=== PATIENT | female | born 1985 | race African-American/Black ===

== ENCOUNTER 2016-11-26 09:42 | Emergency (ER) | payer SELFPAY ==
[~2016-11-26] VITALS: Ht 162.6 cm; Wt 55.0 kg
[~2016-11-26 09:42] MED LIST: ARIP20 PO; AZIT250T43 PO; SERO300T PO; SILV1CRE59 TOP; TRAZ100 PO
[2016-11-26 09:44] VITALS: BP 132/68; PULSE 70; RESP 18; TEMP 98.7; O2SAT 97
--- NOTE | 2016-11-26 10:29 | PD ---
HPI . right lower jaw pain for > 2 years Chief Complaint: Oral / Dental Pain or Problem Time Seen by Provider: 10:29 Travel History International Travel<30 days: No Contact w/Intl Traveler<30days: No Traveled to known affect area: No History of Present Illness HPI 31-year-old female here with complaints of right lower jaw pain off and on for over 2 years. Patient states that she has not yet seen a dentist. She is complaining of some tooth pain on the lower jaw on the right side. She tells me that the pain was extreme. She also reports that she had some pain in her right ear and thinks that it may be draining into her mouth. She admits to a full sensation in her throat. She says she felt like her throat was tight. She admits to taking someone else's lortab around 7am. She denies any fever or chills. She has no other complaints. She is not short of breath or having any difficulty breathing or swallowing. She is accompanied by her mom, sister and cousin. PFSH Past Medical History Hx Anticoagulant Therapy: No Bipolar Disorder: Yes Cancer: No Cardiovascular Problems: No Chemotherapy: No Cerebrovascular Accident: No Diabetes: No Diminished Hearing: No Psychiatric: No Respiratory: No Schizophrenia: Yes Seizures: No Thyroid Disease: No ?: Not LMP: 11/2016 : 0 Para: 0 Past Surgical History Hysterectomy: No Social History Alcohol Use: Yes Tobacco Use: Yes (1 ppd) Substance Use: Yes Allergies-Medications (Allergen,Severity, Reaction): Coded Allergies: No Known Allergies (Verified , 11/26/16) Reported Meds & Prescriptions Reported Meds & Active Scripts Active Ibuprofen 800 Mg Tab 800 Mg PO TID Zithromax Z-Eric (Azithromycin) 250 Mg Dspk 250 Mg PO DIRECTED 500 MG (2 tabs) day 1, then 1 tab days 2-5. Reported Trazodone (Trazodone HCl) 100 Mg Tab 200 Mg PO HS Seroquel XR (Quetiapine Fumarate) 400 Mg Tab 800 Mg PO DAILY Abilify (Aripiprazole) 20 Mg Tab 20 Mg PO DAILY Review of Systems General / Constitutional: No: Fever Eyes: No: Visual changes HENT: Positive: Dental Difficulties, Earache, No: Headaches Cardiovascular: No: Chest Pain or Discomfort Respiratory: No: Shortness of Breath Gastrointestinal: No: Abdominal Pain Genitourinary: No: Dysuria Musculoskeletal: No: Pain Skin: No Rash Neurologic: No: Weakness Psychiatric: No: Depression Endocrine: No: Polydipsia Hematologic/Lymphatic: No: Easy Bruising Physical Exam Narrative GENERAL: AAO x 3, no acute distress, Well-nourished, well-developed patient. SKIN: Warm and dry. No visible rashes or bruising. HEAD: Normocephalic and atraumatic. EYES: No scleral icterus. No injection or drainage. EOM intact, PERRLA ENT: No nasal drainage noted. Mucous membranes pink. Airway patent. #32 slightly impacted. Posterior pharynx clear without any edema, erythema or exudates. Ears bilaterally with fluid. Some frontal sinus tenderness on the right greater than left NECK: Supple, trachea midline. No JVD. No lymphadenopathy CARDIOVASCULAR: Regular rate and rhythm without murmurs, gallops, or rubs. RESPIRATORY: Breath sounds equal bilaterally. No accessory muscle use. No rhonchi or rales. GASTROINTESTINAL: Abdomen soft, non-tender, nondistended. EXTREMITIES: No cyanosis or edema. BACK: Nontender without obvious deformity. No CVA tenderness. PSYCH: AAO x 3, normal affect. Data Data Last Documented VS Vital Signs Date Time Temp Pulse Resp B/P Pulse Ox O2 Delivery O2 Flow Rate FiO2 11/26/16 09:44 98.7 70 18 132/68 97 MDM Medical Decision Making Medical Screen Exam Complete: Yes Emergency Medical Condition: Yes Medical Record Reviewed: Yes Differential Diagnosis dentalgia, sinusitis, less likely oral abscess Narrative Course 31-year-old female here with complaints of right lower jaw pain off and on for over 2 years. Patient states that she has not yet seen a dentist. She is complaining of some tooth pain on the lower jaw on the right side. She tells me that the pain was extreme. She also reports that she had some pain in her right ear and thinks that it may be draining into her mouth. She admits to a full sensation in her throat. She says she felt like her throat was tight. She admits to taking someone else's lortab around 7am. She denies any fever or chills. She has no other complaints. She is not short of breath or having any difficulty breathing or swallowing. She is accompanied by her mom, sister and cousin. Patient seen and examined. In regards to her tooth, there is not much that I can do. It is not infected. She will need to see a dentist. She does appear to have a case of sinusitis. I'll go ahead and treat her with azithromycin for this. I discussed her treatment plan with her and her family. I've advised that she could use Tylenol as needed for pain. Diagnosis Primary Impression: Dentalgia Additional Impression: Acute sinusitis Qualified Code: J01.90 - Acute sinusitis, recurrence not specified, unspecified location Additional Instructions: Please return to emergency department if your symptoms return or worsen. Follow up with your primary care provider. Take medications as prescribed. Please see a dentist as soon as possible. Med/Other Pt SpecificInfo: Prescription(s) given Scripts Ibuprofen 800 Mg [id number] Mg PO TID #21 TAB Prov:Arnold Doty MD 11/26/16 Azithromycin (Zithromax Z-Eric)250 Mg [id number] Mg PO DIRECTED #1 DSPK Ref 0 500 MG (2 tabs) day 1, then 1 tab days 2-5. Prov:Arnold Doty MD 11/26/16 Disposition: DISCHARGE HOME Condition: Stable Lita Leon Nov 26, 2016 10:29
[2016-11-26] MEDS ORDERED: IBUP800T23 PO (10:38)
[2016-11-26] MEDS ORDERED: ZITHTAB PO (10:38)
[2016-11-26] MEDS ORDERED: ARIP1TAB7 PO (10:41)
[2016-11-26] MEDS ORDERED: QUET400XR PO (10:41)
[2016-11-26] MEDS ORDERED: TRAZ100T4 PO (10:41)
== END 2016-11-26 11:14 | disposition home or self-care (01) ==
LOC: NEPK 09:42
DX: K08.89 Other specified disorders of teeth and supporting structures (principal); J01.90 Acute sinusitis, unspecified; F17.210 Nicotine dependence, cigarettes, uncomplicated
CPT/HCPCS: 99282

== ENCOUNTER 2016-12-31 01:07 | Emergency (ER) | payer SELFPAY ==
[~2016-12-31 01:07] MED LIST changes: +ARIP1TAB7 PO; -ARIP20 PO; -AZIT250T43 PO; +IBUP800T23 PO; +QUET400XR PO; -SERO300T PO; -SILV1CRE59 TOP; -TRAZ100 PO; +TRAZ100T4 PO; +ZITHTAB PO
[2016-12-31 01:09] VITALS: BP 117/82; PULSE 91; RESP 16; TEMP 99.1; O2SAT 100
[2016-12-31] MEDS ORDERED: IBUPROFEN 800 MG TAB PO ONE (02:15)
--- NOTE | 2016-12-31 02:31 | PD ---
HPI Chief Complaint: Musculoskeletal Complaint Time Seen by Provider: 02:20 Travel History International Travel<30 days: No Contact w/Intl Traveler<30days: No Traveled to known affect area: No History of Present Illness HPI Patient's 31 year old female stenting to emergency department evaluation of left fourth finger pain. Patient states she hurt her finger well wrestling. Patient states injury occurred at approximately 4 AM yesterday she's been applying ice with no significant relief of symptoms. She reports the pain is 8 out of 10, pain is exacerbated with movement, somewhat relieved with rest. Patient states that she cannot move her left fourth finger. She denies any other complaints at this time. PFSH Past Medical History Hx Anticoagulant Therapy: No Bipolar Disorder: Yes Cancer: No Cardiovascular Problems: No Chemotherapy: No Cerebrovascular Accident: No Diabetes: No Diminished Hearing: No Psychiatric: No Respiratory: No Schizophrenia: Yes Seizures: No Thyroid Disease: No Tetanus Vaccination: < 5 Years ?: Not LMP: 12/12/2016 : 0 Para: 0 Past Surgical History Surgical History: No Previous Surgery Hysterectomy: No Social History Alcohol Use: Yes (occasionally) Tobacco Use: Yes (1 ppd) Substance Use: Yes Allergies-Medications (Allergen,Severity, Reaction): Coded Allergies: No Known Allergies (Verified , 12/31/16) Reported Meds & Prescriptions Reported Meds & Active Scripts Active Ibuprofen 800 Mg Tab 800 Mg PO Q6HR PRN Percocet (Oxycodone-Acetaminophen) 5-325 mg Tab 1 Tab PO Q6H PRN Review of Systems Except as stated in HPI: all other systems reviewed are Neg Musculoskeletal: Positive: Myalgias, Arthralgias, Limited ROM, Pain Physical Exam Narrative GENERAL: Well-nourished, well-developed patient. SKIN: Focused skin assessment warm/dry. HEAD: Normocephalic. EYES: No scleral icterus. No injection or drainage. NECK: Supple, trachea midline. No JVD or lymphadenopathy. CARDIOVASCULAR: Regular rate and rhythm without murmurs, gallops, or rubs. RESPIRATORY: Breath sounds equal bilaterally. No accessory muscle use. GASTROINTESTINAL: Abdomen soft, non-tender, nondistended. MUSCULOSKELETAL: No cyanosis, mild edema noted to left fourth finger, no obvious deformities noted. Decreased range of motion with left fourth finger. Positive radial pulse, brisk less than 3 seconds capillary refill. Patient is neurovascularly intact. BACK: Nontender without obvious deformity. No CVA tenderness. Data Data Last Documented VS Vital Signs Date Time Temp Pulse Resp B/P Pulse Ox O2 Delivery O2 Flow Rate FiO2 12/31/16 01:09 99.1 91 16 117/82 100 Room Air Orders Hand, Complete (Lip0isg) (12/31/16 ) Ibuprofen (Motrin) (12/31/16 02:15) Splinting (12/31/16 ) Support Splint (12/31/16 02:46) MDM Medical Decision Making Medical Screen Exam Complete: Yes Emergency Medical Condition: Yes Interpretation(s) Last Impressions Hand X-Ray 12/31/16 0000 Signed Impressions: Service Date/Time: Saturday, December 31, 2016 02:35 - CONCLUSION: Slightly displaced oblique fracture of the proximal to mid left fourth metacarpal Willis Mclean MD Vital Signs Date Time Temp Pulse Resp B/P Pulse Ox O2 Delivery O2 Flow Rate FiO2 12/31/16 01:09 99.1 91 16 117/82 100 Room Air Differential Diagnosis Fracture versus sprain versus strain versus dislocation versus other Narrative Course Patient is a 31-year-old female presenting to the emergency department evaluation of left fourth finger pain that occurred almost 24 hours ago. Patient is neurovascularly intact. Imaging ordered and pending. Patient given ibuprofen for pain. Imaging revealed a slightly displaced oblique fracture of the proximal to mid left fourth metacarpal. Patient will be placed in a ulnar gutter splint. A mandatory referral will be made to follow-up with hand surgeon. Patient given short course of oral narcotic pain medication. She is encouraged to follow-up with hand surgeon, take medications as needed and as directed. She is advised to return to emergency department for any new or worsening symptoms. Patient verbalized understanding of instructions. Patient is stable for discharge. Diagnosis Primary Impression: Fracture, metacarpal Qualified Code: S62.325A - Closed displaced fracture of shaft of fourth metacarpal bone of left hand, initial encounter Referrals: Hand Surgeon 1 week Patient Instructions: General Instructions Additional Instructions: Follow-up with a hand surgeon, mandatory referral has been made for you Take medications as directed Do not drive or operate heavy machinery while taking narcotic pain medication Return to emergency department immediately for any new or worsening symptoms Med/Other Pt SpecificInfo: Prescription(s) given Scripts Ibuprofen 800 Mg [id number] Mg PO Q6HR PRN (PAIN) #40 TAB Ref 0 Prov:Cristel Monzon 12/31/16 Oxycodone-Acetaminophen (Percocet)5-325 mg Tab1 Tab PO Q6H PRN (PAIN) #10 TAB Ref 0 Prov:Manan Spencer MD 12/31/16 Disposition: 01 DISCHARGE HOME Condition: Stable Cristel Monzon December 31, 2016 02:31
--- NOTE | 2016-12-31 02:48 | RADRPT ---
EXAM DATE/TIME: 12/31/2016 02:35 [facility] COMPARISON: No previous studies available for comparison. INDICATIONS : Left hand impact injury. Pain at 4th metacarpal. MEDICAL HISTORY : None. SURGICAL HISTORY : None. ENCOUNTER: Initial ACUITY: 1 day PAIN SCORE: 8/10 LOCATION: Left hand, 4th metacarpal FINDINGS: There is no oblique minimally displaced fracture involving the proximal fourth metacarpal which appea rs to extend to the carpometacarpal joint. The hand is otherwise intact. Mineralization is normal. No articular abnormalities are identified. CONCLUSION: Slightly displaced oblique fracture of the proximal to mid left fourth metacarpal Willis Mclean MD on December 31, 2016 at 2:44 Board Certified Radiologist. This report was verified electronically.
[2016-12-31] MEDS ORDERED: PERC5TAB12 PO (02:56)
[2016-12-31] MEDS ORDERED: IBUP800T23 PO (03:08)
== END 2016-12-31 03:42 | disposition home or self-care (01) ==
LOC: NEPD 01:07
DX: S62.325A Displaced fracture of shaft of fourth metacarpal bone, left hand, initial encounter for closed fracture (principal); F17.219 Nicotine dependence, cigarettes, with unspecified nicotine-induced disorders; X50.1XXA Overexertion from prolonged static or awkward postures, initial encounter; Y93.72 Activity, wrestling
CPT/HCPCS: 73130; 99283

== ENCOUNTER 2017-01-21 07:24 | Emergency (ER) | payer SELFPAY ==
[~2017-01-21] VITALS: Ht 160 cm; Wt 50.0 kg
[~2017-01-21 07:24] MED LIST changes: -ARIP1TAB7 PO; +PERC5TAB12 PO; -QUET400XR PO; -TRAZ100T4 PO; -ZITHTAB PO
[2017-01-21 07:27] VITALS: BP 134/71; PULSE 77; RESP 15; TEMP 98; O2SAT 99
--- NOTE | 2017-01-21 07:42 | PD ---
HPI Chief Complaint: Injury Time Seen by Provider: 07:42 Travel History International Travel<30 days: No Contact w/Intl Traveler<30days: No Traveled to known affect area: No History of Present Illness HPI 31-year-old Afro-[place]azi female presents the emergency Department with ongoing left hand and fourth finger pain. Patient was seen previously on December 31 and diagnosed with a fourth metacarpal fracture due to "wrestling" the day before. Patient was placed in an ulnar gutter splint, and referred to the hand surgeon. Apparently the patient went to [facility], and never followed up with the hand surgeon. She is not having problems with ongoing pain in the splint that was applied is now inadequate. She has no known drug allergies. PFSH Past Medical History Hx Anticoagulant Therapy: No Bipolar Disorder: Yes Cancer: No Cardiovascular Problems: No Chemotherapy: No Cerebrovascular Accident: No Diabetes: No Diminished Hearing: No Psychiatric: No Respiratory: No Schizophrenia: Yes Seizures: No Thyroid Disease: No ?: Not : 0 Para: 0 Past Surgical History Hysterectomy: No Social History Alcohol Use: Yes (occasionally) Tobacco Use: Yes (1 ppd) Substance Use: Yes Allergies-Medications (Allergen,Severity, Reaction): Coded Allergies: No Known Allergies (Verified , 12/31/16) Reported Meds & Prescriptions Reported Meds & Active Scripts Active Ibuprofen 600 Mg Tab 600 Mg PO Q6H PRN Non-Aspirin Pain Relief ES (Acetaminophen) 500 Mg Tab 500 Mg PO Q6HR PRN Review of Systems ROS Limitations: Intoxication (patient appears to be under the influence of drugs, falling asleep while being interviewed.) Except as stated in HPI: all other systems reviewed are Neg General / Constitutional: No: Fever Eyes: No: Visual changes HENT: No: Headaches Cardiovascular: No: Chest Pain or Discomfort Respiratory: No: Shortness of Breath Gastrointestinal: No: Abdominal Pain Genitourinary: No: Dysuria Musculoskeletal: Positive: Arthralgias (see history present illness.), Limited ROM, Pain Skin: No Rash Neurologic: No: Weakness Psychiatric: No: Depression Endocrine: No: Polydipsia Hematologic/Lymphatic: No: Easy Bruising Physical Exam Exam Limitations: Intoxication Narrative GENERAL: Patient appears in no acute distress. SKIN: Warm and dry. Normal color. Normal turgor. HEAD: Atraumatic. Normocephalic. EYES: Pupils equal and round. No scleral icterus. No injection or drainage. ENT: No nasal bleeding or discharge. Mucous membranes pink and moist. Pharynx is clear. Airway is clear. NECK: Trachea midline. Supple nontender. CARDIOVASCULAR: Regular rate and rhythm. RESPIRATORY: No accessory muscle use. Clear to auscultation. Breath sounds equal bilaterally. MUSCULOSKELETAL: Extremities without clubbing, cyanosis, or edema. No obvious deformities. Patient is tenderness to the left hand consistent with previous history. Splint is partially falling off. NEUROLOGICAL: Awake and alert. No obvious cranial nerve deficits. Motor grossly within normal limits. Five out of 5 muscle strength in the arms and legs. Normal speech. PSYCHIATRIC: Appropriate mood and affect; insight and judgment normal. Data Data Last Documented VS Vital Signs Date Time Temp Pulse Resp B/P Pulse Ox O2 Delivery O2 Flow Rate FiO2 01/21/17 07:27 98.0 77 15 134/71 99 Orders Splinting (01/21/17 ) MDM Medical Decision Making Medical Screen Exam Complete: Yes Emergency Medical Condition: Yes Medical Record Reviewed: Yes Differential Diagnosis Left hand pain. Left metacarpal fracture. Need for new splint and follow-up. Narrative Course Patient is medically stable at time of exam. Patient's splint is removed and replaced by orthostatics. Patient is given ibuprofen 600 mg 4 times a day when necessary #40. Patient is given acetaminophen 500 mg 2 tabs every 6 hours when necessary #60. Patient is to follow with Dr. Haque the hand surgeon for further evaluation and treatment as needed. This splint should remain in place until follow-up with a hand surgeon. Diagnosis Primary Impression: Fracture, metacarpal Qualified Code: S62.355D - Closed nondisplaced fracture of shaft of fourth metacarpal bone of left hand with routine healing, subsequent encounter Referrals: Mk Haque III, MD call for appointment Patient Instructions: General Instructions, Hand Fracture (ED), Splint Care (DC ) Additional Instructions: Patient's splint is removed and replaced by orthostatics. Patient is given ibuprofen 600 mg 4 times a day when necessary #40. Patient is given acetaminophen 500 mg 2 tabs every 6 hours when necessary #60. Patient is to follow with Dr. Haque the hand surgeon for further evaluation and treatment as needed. This splint should remain in place until follow-up with a hand surgeon. Med/Other Pt SpecificInfo: Prescription(s) given Scripts Ibuprofen 600 Mg [id number] Mg PO Q6H PRN (Pain/Inflammation) #40 TAB Prov:Vinnie Rosa MD 01/21/17 Acetaminophen (Non-Aspirin Pain Relief ES)500 Mg [id number] Mg PO Q6HR PRN (PAIN) # 60 TAB Prov:Vinnie Rosa MD 01/21/17 Disposition: 01 DISCHARGE HOME Condition: Stable Marcelino Quiles Jan 21, 2017 07:42
[2017-01-21] MEDS ORDERED: IBUP-232 PO (08:28)
[2017-01-21] MEDS ORDERED: NON-500T13 PO (08:28)
== END 2017-01-21 10:33 | disposition home or self-care (01) ==
LOC: NEPD 07:24
DX: S62.355D Nondisplaced fracture of shaft of fourth metacarpal bone, left hand, subsequent encounter for fracture with routine healing (principal); F17.210 Nicotine dependence, cigarettes, uncomplicated; X58.XXXD Exposure to other specified factors, subsequent encounter
CPT/HCPCS: 29125

== ENCOUNTER 2017-04-24 16:06 | Emergency (ER) | payer SELFPAY ==
[~2017-04-24] VITALS: Ht 160 cm; Wt 47.0 kg
[~2017-04-24 16:06] MED LIST changes: +IBUP-232 PO; -IBUP800T23 PO; +NON-500T13 PO; -PERC5TAB12 PO
[2017-04-24 16:08] VITALS: BP 107/73; PULSE 88; RESP 20; TEMP 99; O2SAT 100
--- NOTE | 2017-04-24 16:19 | PD ---
Physical Exam Date Seen by Provider: Apr 24, 2017 Time Seen by Provider: 16:18 Narrative 31-year-old black female presents to emergency Department with complaints of left knee pain. She states that she had slipped down injuring her left knee last evening. Patient reports her pain a 9/10. Patient denies any other injuries. No injury to her head, neck or back. Data Data Last Documented VS Vital Signs Date Time Temp Pulse Resp B/P (MAP) Pulse Ox O2 Delivery O2 Flow Rate FiO2 04/24/17 16:08 99.0 88 20 107/73 (84) 100 Room Air [facility] Medical Record Reviewed: No Supervised Visit with CAROLINE: Carrington Canales Apr 24, 2017 16:19
[2017-04-24] MEDS ORDERED: IBUP800T23 PO (16:49)
--- NOTE | 2017-04-24 16:50 | PD ---
HPI Chief Complaint: Injury Time Seen by Provider: 16:48 Travel History International Travel<30 days: No Contact w/Intl Traveler<30days: No Traveled to known affect area: No History of Present Illness HPI 31-year-old female presents to emergency Department with complaint of left knee pain after slipping on a wet stair last night and twisting her knee. Has been ambulatory on the affected extremity. Denies paresthesias, loss of sensation, decreased range motion, decreased strength to the affected extremity. Pain is exacerbated with flexion and ambulation. Pain is to the lateral aspect of the knee. Has not taken any medications or tried any treatments to alleviate her symptoms. Symptoms are mild in severity. Has no other medical complaints. No known allergies. No other modifying factors or associated signs and symptoms. PFSH Past Medical History Hx Anticoagulant Therapy: No Bipolar Disorder: Yes Cancer: No Cardiovascular Problems: No Chemotherapy: No Cerebrovascular Accident: No Diabetes: No Diminished Hearing: No Psychiatric: No Respiratory: No Schizophrenia: Yes Seizures: No Thyroid Disease: No Tetanus Vaccination: < 5 Years ?: Not : 0 Para: 0 Past Surgical History Surgical History: No Previous Surgery Hysterectomy: No Social History Alcohol Use: Yes (occasionally) Tobacco Use: Yes (1 ppd) Substance Use: Yes Allergies-Medications (Allergen,Severity, Reaction): Coded Allergies: No Known Allergies (Verified , 04/24/17) Reported Meds & Prescriptions Reported Meds & Active Scripts Active Ibuprofen 800 Mg Tab 800 Mg PO Q6HR PRN Review of Systems Except as stated in HPI: all other systems reviewed are Neg Physical Exam Narrative GENERAL: Well-nourished, well-developed black female patient, in no acute distress; afebrile, nontoxic-appearing SKIN: Warm and dry. HEAD: Atraumatic. Normocephalic. EYES: Pupils equal and round. No scleral icterus. No injection or drainage. ENT: Mucosa pink and moist. Airway patent. NECK: Trachea midline. CARDIOVASCULAR: Regular rate. RESPIRATORY: No accessory muscle use. GASTROINTESTINAL: Flat. MUSCULOSKELETAL: Left knee nonedematous, nonerythematous, and without ecchymosis ; full range of motion and flexion to 90; point tenderness to the lateral aspect; joint stable with negative drawer test; no obvious deformity. Left Lower extremity is supple and non-tense with 2+ pedal pulse and sensory intact and without erythema or edema. No cyanosis. No clubbing. No edema. NEUROLOGICAL: Awake and alert. Oriented 3. No obvious cranial nerve deficits. Motor grossly within normal limits. Normal speech. PSYCHIATRIC: Appropriate mood and affect; insight and judgment normal. Data Data Last Documented VS Vital Signs Date Time Temp Pulse Resp B/P (MAP) Pulse Ox O2 Delivery O2 Flow Rate FiO2 04/24/17 16:08 99.0 88 20 107/73 (84) 100 Room Air Orders Orders Ice/Cold Pack (04/24/17 16:19) Knee, Complete (4vws) (04/24/17 16:24) Crutches (04/24/17 16:50) Ibuprofen (Motrin) (04/24/17 17:00) MDM Medical Decision Making Medical Screen Exam Complete: Yes Emergency Medical Condition: Yes Medical Record Reviewed: Yes Differential Diagnosis Knee sprain, knee injury, ligament tear, meniscal tear Narrative Course 31-year-old female with left knee injury. Ibuprofen administered in the ER. Left knee x-ray ordered. 1658: Left knee x-ray concludes: Very small suprapatellar effusion; Otherwise negative. No acute fracture. Ralph bandage and crutches provided for support. Instructed patient to follow up with orthopedics if symptoms persist. Ibuprofen prescribed for home. Instructed patient to follow up with primary care provider. Patient verbalizes understanding and agreement with treatment plan. Patient is medically cleared and stable for discharge. Discussed reasons to return to the emergency department. Patient agrees with treatment plan. The patients vital signs are stable and the patient is stable for outpatient follow-up and treatment. Patient discharged home, stable and in no acute distress. Diagnosis Primary Impression: Left knee injury Qualified Codes: S89.92XA - Unspecified injury of left lower leg, initial encounter Referrals: Primary Care Physician Patient Instructions: Crutch Instructions (ED), General Instructions, Knee Sprain (ED) Additional Instructions: Tylenol or ibuprofen as needed and as directed to reduce pain and inflammation Rest, ice, compress, and elevate extremity to decrease pain and inflammation Knee brace for support Crutches for support Avoid aggravating activity; increase activity as tolerated Follow-up with primary care provider Follow-up with orthopedics Return to the emergency department immediately with worsening symptoms Med/Other Pt SpecificInfo: Prescription(s) given Scripts Ibuprofen (Ibuprofen) 800 Mg Tab 800 MG PO Q6HR Y for PAIN, #30 TAB 0 Refills Prov: Karina Meadows 04/24/17 Disposition: 01 DISCHARGE HOME Condition: Stable Karina Meadows Apr 24, 2017 16:50
--- NOTE | 2017-04-24 16:53 | RADRPT ---
EXAM DATE/TIME: 04/24/2017 16:35 [facility] COMPARISON: No previous studies available for comparison. INDICATIONS : Patient fell down stairs last night, landing on left knee. Complains of left knee pain. MEDICAL HISTORY : None. SURGICAL HISTORY : None. ENCOUNTER: Initial ACUITY: 1 day PAIN SCORE: 9/10 LOCATION: Left Knee FINDINGS: Four view examination of the left knee demonstrates no evidence of fracture or dislocation. Bony min eralization is normal. The articular surfaces are intact. Very small suprapatellar effusion. CONCLUSION: 1. Very small suprapatellar effusion. 2. Otherwise negative. No acute fracture Luke Casillas MD on April 24, 2017 at 16:51 Board Certified Radiologist. This report was verified electronically.
[2017-04-24] MEDS ORDERED: IBUPROFEN 800 MG TAB PO ONE (17:00)
== END 2017-04-24 17:08 | disposition home or self-care (01) ==
LOC: NEPK 16:06
DX: S89.92XA Unspecified injury of left lower leg, initial encounter (principal); F17.200 Nicotine dependence, unspecified, uncomplicated; W10.9XXA Fall (on) (from) unspecified stairs and steps, initial encounter
CPT/HCPCS: 73564; 99283; E0113